=== PATIENT | female | born 1995 | race Two or more races ===

== ENCOUNTER 2018-06-17 16:09 | Emergency (ER) | payer SELFPAY ==
[2018-06-17 16:15] VITALS: BP 130/85; PULSE 67; TEMP 98.1; BMI 17.8
--- NOTE | 2018-06-17 16:16 | PDOC ---
History of Present Illness - General Chief Complaint: Migraine Headache Stated Complaint: MIGRAINE History Source: Patient Exam Limitations: No Limitations - History of Present Illness Initial Comments: 23 yo F with a hx of migraines presents to the emergency department with a headache for the past 5 days. she states this feels like her migraines, with her last episode 6 months ago. Headache initially was on the right frontal aspect with radiation to occipital and now left frontal aspect with radiation to occipital with associative paravertebral neck pain and shoulder tightness. She endorses having less than optimal sleep due to finals studying and endorses dehydration. Endorses photophobia, phonophobia with the pain worse in the morning and relieves during the day. States tylenol and advil did not help. Endorses nausea and nasal congestion. Denies the following: fever, chills, neck rigidity, vomiting, visual changes, ear pain, throat pain, ear pain, chest pain , SOB, abdominal pain, dysuria, hematuria, hematochezia, diarrhea, leg pain/ swelling, and melena. Pmhx: Migraines (previously had a neurologist in her hometown - hasnt seen one in over 2 years). Shx: None Meds: None Allergies: NKDA Social: Denies tobacco, alcohol, and substance abuse. Past History - Past Medical History Allergies/Adverse Reactions: Allergies Allergy/AdvReac Type Severity Reaction Status Date / Time No Known Allergies Allergy Verified 06/17/18 16:09 Home Medications: Ambulatory Orders Metoclopramide HCl [Reglan -] 10 mg PO QID PRN #30 tablet 06/17/18 COPD: No - Suicide/Smoking/Psychosocial Hx Smoking History: Never smoked Hx Alcohol Use: No Drug/Substance Use Hx: No Review of Systems - Review of Systems Able to Perform ROS?: Yes Is the patient limited [place]er proficient: No Constitutional: No: Chills, Diaphoresis, Fever, Weakness HEENTM: No: Eye Pain, Recent change in vision, Ear Pain, Nose Pain, Throat Pain , Mouth Pain Respiratory: No: Cough, Shortness of Breath, SOB with Exertion, Hemoptysis Cardiac (ROS): No: Chest Pain, Lightheadedness, Palpitations, Syncope, Chest Tightness ABD/GI: Yes: Nausea, Poor Fluid Intake. No: Constipated, Diarrhea, Poor Appetite, Rectal Bleeding, Vomiting, Indigestion, Tarry Stools : No: Burning, Dysuria, Hematuria, Urgency Musculoskeletal: Yes: Neck Pain. No: Back Pain, Gout, Joint Pain, Muscle Pain, Muscle Weakness Integumentary: No: Lesions, Pallor, Rash Neurological: Yes: Headache. No: Numbness, Paresthesia, Tingling, Tremors, Weakness, Ataxia Psychiatric: Yes: Stressors, Sleep Pattern Change Endocrine: No: Unexplained Weight Gain Hematologic/Lymphatic: No: Anemia *Physical Exam - Vital Signs Last Vital Signs Temp Pulse Resp BP Pulse Ox 98.1 F 67 18 130/85 100 06/17/18 16:09 06/17/18 16:09 06/17/18 16:09 06/17/18 16:09 06/17/18 16:09 - Physical Exam General Appearance: Yes: Nourished, Appropriately Dressed. No: Apparent Distress, Intoxicated HEENT: positive: EOMI, TONY, Normal ENT Inspection, Normal Voice, Symmetrical, TMs Normal, Pharynx Normal, Nasal Congestion, Hearing Grossly Normal. negative : Pale Conjunctivae, Scleral Icterus (R), Scleral Icterus (L), Muffled/Hoarse voice, Rhinorrhea, Hearing Decreased, Excessive drooling Neck: positive: Trachea midline, Normal Thyroid, Supple. negative: Tender, Rigid, Decreased range of motion, Lymphadenopathy (R), Lymphadenopathy (L), Tender lateral, Tender midline Respiratory/Chest: positive: Lungs Clear, Normal Breath Sounds. negative: Chest Tender, Respiratory Distress, Accessory Muscle Use, Paradoxal Breathing, Crackles, Rales, Rhonchi, Stridor, Wheezing Cardiovascular: positive: Regular Rhythm, Regular Rate, S1, S2. negative: Systolic Murmur Gastrointestinal/Abdominal: positive: Normal Bowel Sounds, Flat, Soft. negative : Tender, Pulsatile Mass, Distended, Rebound, Tenderness Lymphatic: negative: Adenopathy Musculoskeletal: positive: Normal Inspection. negative: CVA Tenderness, CVA Tenderness (R), CVA Tenderness (L), Vertebral Tenderness Extremity: positive: Normal Capillary Refill, Normal Inspection, Normal Range of Motion. negative: Tender, Swelling, Calf Tenderness, Erythema Integumentary: positive: Normal Color, Dry, Warm Neurologic: positive: field services manager II-XII NML intact, Fully Oriented, Alert, Normal Mood/ Affect, Normal Response, Motor Strength 5/5. negative: EOM Palsy, Facial Droop , Sensory Deficit, Confused Moderate Sedation - Procedure Monitoring Vital Signs: Procedure Monitoring Vital Signs Temperature 98.1 F 06/17/18 16:09 Pulse Rate 67 06/17/18 16:09 Respiratory Rate 18 06/17/18 16:09 Blood Pressure 130/85 06/17/18 16:09 O2 Sat by Pulse Oximetry (%) 100 06/17/18 16:09 Medical Decision Making - Medical Decision Making 23 yo F with a hx of migraines presents to the emergency department with a headache for the past 5 days. she states this feels like her migraines, with her last episode 6 months ago. Initial vital signs: Initial Vital Signs Temp Pulse Resp BP Pulse Ox 98.1 F 67 18 130/85 100 06/17/18 16:09 06/17/18 16:09 06/17/18 16:09 06/17/18 16:09 06/17/18 16:09 Work up: ddx: headache (migraine vs tension vs cluster) vs sinusitis vs URI. likely this is a headache vs sinusitis given she has no pressure to palpation in the sinus region and the pain is more descriptive of tension headache due to radiation to neck with associative symptoms of dehydration and sleep alterations and in addition states this feels like her migraine headaches. will give her reglan, benadryl, and 1 gram of tylenol for treatment and reassess. Patient was reassessed after treatment and her headache went from a 5/10 to approximately 2/10 and felt much better. she agreed to follow up with a neurologist within the next 72 hours. she was given a prescription for reglan to use for headaches. Dispo: Discharge *DC/Admit/Observation/Transfer Diagnosis at time of Disposition: Headache Qualifiers: Headache type: unspecified Headache chronicity pattern: unspecified pattern Intractability: not intractable Qualified Code(s): R51 - Headache - Discharge Dispostion Disposition: HOME Condition at time of disposition: Stable Decision to Admit order: No - Prescriptions Prescriptions: Metoclopramide HCl [Reglan -] 10 mg PO QID PRN #30 tablet PRN Reason: Headache - Referrals Referrals: Raphael Naylor MD [Staff Physician] - [facility] [place] [Provider Group] - Patient Instructions Printed Discharge Instructions: DI for Migraine Additional Instructions: you were seen in the emergency department for your migraine. we gave you reglan , benadryl, and tylenol. you greatly improved. we referred you to a primary medical doctor and a neurologist. Please follow up with both of them within 5-7 days after discharge for follow up care and management. please take the medication prescribed to you as directed on the label. please return to the emergency department if you develop fevers/chills, nausea, vomiting, altered vision, and confusion. thank you. - Post Discharge Activity
--- NOTE | 2018-06-17 16:32 | PDOC ---
Attending Attestation - Resident Resident Name: Alec Saavedra - ED Attending Attestation I have performed the following: I have examined & evaluated the patient, The case was reviewed & discussed with the resident, I agree w/resident's findings & plan, Exceptions are as noted - HPI HPI: 06/17/18 16:29 23y F hx of migraines (fairly infrequently, last was 6 months ago) presenst with persistent migraine for the past 5 days - most in the R frontal region radiating to the back, now is more left sided. associated with photophobia, phonophobia, nausea. similar in nature to previous headaches. no significant imrpvement with ibuprofen/tylenol. no recent trauma. denies any fever/chills, cp , sob, vision changes, numbness/tingling/weakness. +external stressors - studying for [employer] - Physicial Exam PE: 06/17/18 18:58 General: no acute distress Neuro: no focal facial assymetric, normal gait, normal sensation HEENT: atraumatic scalp - Medical Decision Making 06/17/18 18:58 suspect migraine - pt improved with reglan and tylenol will dc with pmd fu return precautions were discussed
[2018-06-17] MEDS ORDERED: diphenhydrAMINE HCL 25 MG CAPSULE (FP) PO ONE ×2 (16:52→16:54)
[2018-06-17] MEDS ORDERED: ACETAMINOPHEN 500 MG TABLET (FP) PO ONE (16:52)
[2018-06-17] MEDS ORDERED: METOCLOPRAMIDE HCL 10 MG TABLET (FP) PO ONE ×2 (16:52→16:54)
[2018-06-17] MEDS ORDERED: ACETAMINOPHEN 500 MG TABLET (FP) ONE (16:54)
== END 2018-06-17 18:53 | disposition home or self-care (01) ==
LOC: FER 16:09
DX: R51 Headache (principal)
CPT/HCPCS: 99281-25